=== PATIENT | male | born 1990 | race Caucasian/White ===

== ENCOUNTER 2019-09-30 | Emergency (ER) | payer BC ==
[~2019-09-30] MED LIST: AMOXICILLIN500 MG PO; ANAPROX DS550 MG OR; BACTRIM DS1 TAB PO; CEPHALEXIN500 MG OR; NAPROSYN500 MG PO; NO MEDS; ULTRAM50 M1 PO; ULTRAM50 MG OR
[2019-09-30] MEDS ORDERED: AMOXICILLIN500 MG PO (09:49)
== END 2019-09-30 10:21 | disposition home or self-care (01) | DRG 153 ==
DX: J02.0 Streptococcal pharyngitis (principal); F17.220 Nicotine dependence, chewing tobacco, uncomplicated

== ENCOUNTER 2020-03-10 13:29 | Emergency (ER) | payer BC ==
[2020-03-10 14:39] LABS: URINE BILIRUBIN - DIPSTICK NEGATIVE (NEGATIVE); URINE BLOOD DIPSTICK TRACE-INTACT (NEGATIVE); URINE COLOR YELLOW; URINE GLUCOSE - DIPSTICK NEGATIVE (NEGATIVE); URINE KETONE NEGATIVE (NEGATIVE); URINE LEUK ESTERASE NEGATIVE (NEGATIVE); URINE NITRITE - DIPSTICK NEGATIVE (Negative); URINE PROTEIN - DIPSTICK NEGATIVE (NEG-TRACE); URINE SPECIFIC GRAVITY 1.015; URINE UROBILINOGEN - DIPSTICK 0.2 E.U./dL (0.2)
[2020-03-10 15:20] VITALS: BP 154/75
== END 2020-03-10 15:20 | disposition home or self-care (01) | DRG 728 ==
LOC: ED 13:29
PROVIDERS: Student in an Organized Health Care Education/Training Program
DX: A64 Unspecified sexually transmitted disease (principal); N48.5 Ulcer of penis; F17.210 Nicotine dependence, cigarettes, uncomplicated
CPT/HCPCS: J0561

== ENCOUNTER 2021-05-30 17:40 | Emergency (ER) | payer SELFPAY ==
[2021-05-30] MEDS ORDERED: PHENERGAN25 MG RE (20:21)
== END 2021-05-30 17:42 | disposition left against medical advice (07) | DRG 951 ==
LOC: ED 17:40 → LWOBS 17:41
DX: Z53.21 Procedure and treatment not carried out due to patient leaving prior to being seen by health care provider (principal)

== ENCOUNTER 2021-05-30 18:26 | Emergency (ER) | payer SELFPAY ==
[~2021-05-30] VITALS: Ht 188 cm; Wt 84.0 kg
[2021-05-30 19:33] LABS: HEMOGLOBIN 14.7 g/dl (14.0-18.0); IMMATURE GRANULOCYTES 0.2 % (0.0-5.0); MEAN CELL VOLUME 96.4 fL CALC (80.0-100.0); MEAN CORPUSCULAR HGB CONC 34.2 g/dL CAL (32.0-36.0); NEUT# 7.54 thou/uL (1.82-7.42); RED BLOOD COUNT 4.46 mill/uL (4.70-6.10); RED CELL DISTRI WIDTH 11.5 % (11.5-15.5)
[2021-05-30 19:52] LABS: ALBUMIN 4.6 g/dL (3.2-5.0); ALKALINE PHOSPHATASE 49 u/l (38-126); AMYLASE 58 u/l (30-110); ANION GAP 12 (6-22 (CALC)); BUN 15 mg/dL (9-20); BUN/CREATININE RATIO 17 (12-20 (CALC)); CARBON DIOXIDE 28 mmol/l (22-30); CHLORIDE 100 mmol/l (95-108); CREATININE 0.8 mg/dL (0.7-1.3); GFR > 60 ML/MIN (>=60 (CALC)); GFR FOR AFR.AMER. > 60 ML/MIN (>=60 (CALC)); LIPASE 52 u/l (23-300); POTASSIUM 3.8 mmol/l (3.5-5.1); SODIUM 137 mmol/l (137-146); TOTAL PROTEIN 7.4 g/dL (6.3-8.2)
[2021-05-30 19:54] LABS: BILIRUBIN, TOTAL 0.9 mg/dL (0.0-1.4); SGOT/AST 31 u/l (17-59)
[2021-05-30 20:04] LABS: MYOGLOBIN 40 ng/mL (0 - 121)
[2021-05-30 20:06] LABS: URINE BILIRUBIN - DIPSTICK NEGATIVE (NEGATIVE); URINE BLOOD DIPSTICK NEGATIVE (NEGATIVE); URINE COLOR YELLOW; URINE GLUCOSE - DIPSTICK NEGATIVE (NEGATIVE); URINE KETONE 15 mg/dL (NEGATIVE); URINE LEUK ESTERASE NEGATIVE (NEGATIVE); URINE NITRITE - DIPSTICK NEGATIVE (Negative); URINE PH 7.5 (4.5-8.0); URINE PROTEIN - DIPSTICK NEGATIVE (NEG-TRACE); URINE SPECIFIC GRAVITY 1.015
[2021-05-30] MEDS ORDERED: PHENERGAN25 MG RE (20:21)
[2021-05-30 20:30] VITALS: BP 127/51
== END 2021-05-30 20:41 | disposition home or self-care (01) | DRG 392 ==
LOC: ED 18:26
PROVIDERS: Family Medicine
DX: A08.4 Viral intestinal infection, unspecified (principal); F17.290 Nicotine dependence, other tobacco product, uncomplicated; Z87.01 Personal history of pneumonia (recurrent); Z20.822 Contact with and (suspected) exposure to COVID-19

== ENCOUNTER 2023-04-18 17:59 | Emergency (ER) | payer SELFPAY ==
[~2023-04-18] VITALS: Ht 185.4 cm; Wt 96.1 kg
[~2023-04-18 17:59] MED LIST changes: +PHENERGAN25 MG RE
[2023-04-18 19:30] VITALS: BP 127/66
[2023-04-18 19:47] VITALS: BP 131/71
[2023-04-18 21:54] VITALS: BP 131/71
== END 2023-04-18 21:54 | disposition home or self-care (01) | DRG 605 ==
LOC: ED 17:59
DX: S90.32XA Contusion of left foot, initial encounter (principal); S20.311A Abrasion of right front wall of thorax, initial encounter; F17.290 Nicotine dependence, other tobacco product, uncomplicated; W22.09XA Striking against other stationary object, initial encounter; Y93.16 Activity, rowing, canoeing, kayaking, rafting and tubing